=== PATIENT | male | born 1990 | race Caucasian/White ===

== ENCOUNTER 2017-10-04 08:48 | Emergency (ER) | END 2017-10-04 09:51 | disposition home or self-care (01) ==

== ENCOUNTER 2018-02-25 18:57 | Emergency (ER) | END 2018-02-25 21:55 | disposition home or self-care (01) ==

== ENCOUNTER 2019-01-28 02:05 | Emergency (ER) | payer SELFPAY ==
[~2019-01-28] VITALS: Ht 167.6 cm; Wt 90.9 kg
[~2019-01-28 02:05] MED LIST: ACET325T33 PO; IBUP-1542 PO; LORA-441 PO; RANI150T35 PO
[2019-01-28 02:06] VITALS: Ht 167.6 cm; Wt 90.9 kg
[2019-01-28] MEDS ORDERED: KETOROLAC 15 MG INJ IV STA (02:23)
[2019-01-28] MEDS ORDERED: SOD CHLORIDE 0.9% 1,000 ML IV STA (02:23)
[2019-01-28] MEDS ORDERED: LORAZEPAM 2 MG INJ IV ONE (04:00)
[2019-01-28 05:00] VITALS: BP 112/80; PULSE 104; RESP 18
== END 2019-01-28 05:22 | disposition home or self-care (01) ==
LOC: E/R 02:05
DX: R07.9 Chest pain, unspecified (principal); F41.9 Anxiety disorder, unspecified
CPT/HCPCS: 36415; 71045; 80053; 80307; 81001; 83690; 84484; 85025; 93005; 96361; 96374; 96375; 99285; J1885; J2060; J7030